=== PATIENT | male | born 1970 | race Caucasian/White ===

== ENCOUNTER 2022-03-17 02:54 | Observation (INO) ==
[2022-03-17] MEDS ORDERED: ONDANSETRON INJ 2 MG/ML 2 ML VIAL IV STA ×2 (03:28→05:24)
[2022-03-17] MEDS ORDERED: MoRPHine SULFATE 4 MG/ML 1 ML CARP\\VIAL IV STA ×3 (03:28→07:39)
[2022-03-17] MEDS ORDERED: SODIUM CHLORIDE 0.9% 1000ML 1,000 ML IV ONE ×2 (03:28→05:24)
[2022-03-17] MEDS ORDERED: ACETAMINOPHEN 1,000 MG/100 ML VIAL IV STA (03:28)
--- NOTE | 2022-03-17 03:41 | Emergency Department Note ---
History of Present Illness General Chief complaint: Kidney Stone Stated complaint: PAIN IN BACK AND GROIN,SWEATING Time Seen by Provider: 03/17/22 03:14 Source: patient Mode of arrival: ambulatory Limitations: no limitations History of Present Illness Provider complaint: back pain, abdominal pain, trouble urinating Onset (ago): day(s) 4 Maximum Pain Intensity: 9 This is a 51-year-old male presents emergency department complaining of back pain, abdominal pain, difficulty urinating. 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 Patient states pain seemed to improve on its own and then tonight became worse again with pain not only in the right lower back radiating into the right lower abdomen. Patient states pain was so bad he began having nausea and vomiting. Patient denies any recent trauma. No fevers or chills, or recent sick contacts. Patient states he has had difficulty urinating and feels he is urinating more frequently. He states the urine does look slightly dark. No pain with urination. Pt seen during a time of high acuity and national emergency pandemic while wearing PPE. Home Medications Medication Instructions Recorded Confirmed Type bictegravir 50 mg-emtricitabine 1 tab PO HS 03/17/22 03/17/22 History 200 mg-tenofovir alafenam 25 mg tablet (Biktarvy) cholecalciferol (vitamin D3) 50 2,000 unit PO HS 03/17/22 03/17/22 History mcg (2,000 unit) capsule (Vitamin D3) montelukast 10 mg tablet 10 mg PO HS 03/17/22 03/17/22 History sildenafil 50 mg tablet 50 mg PO DAILY PRN 03/17/22 03/17/22 History valacyclovir 500 mg tablet 500 mg PO UD 03/17/22 03/17/22 History Allergies Allergy/AdvReac Type Severity Reaction Status Date / Time No Known Allergies Allergy Unverified 03/17/22 07:24 Past Med/Surg History Medical History History of HIV infection History of kidney stones Surgical History History of cataract extraction History of rhinoplasty Family History Mother Hx of liver transplant Grandmother Cancer bone cancer Social History Smoking Status: Current every day smoker Tobacco Type: Cigars Years Smoked: 20; Cigarettes Per Day: 6; Second Hand Exposure: No; Do You Dip or Chew Tobacco: No; Tobacco Cessation Education Requested by Patient: No Hx Alcohol Use: No Hx Substance Use: No Preferred Language: Yakut Communication Ability: Effective 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 Beliefs That Will Affect Care: None marital status: Single Current Living Situation: Family Current Living Situation Comment: lives with sister current occupational status: employed current occupation: [employer] Other Information That Helps Us Care for You: No Feels Safe at Home: Yes Safety Concerns: Feels Safe At This Time Assistive Devices: Glasses Review of Systems A total of 10 systems reviewed and were otherwise negative All systems reviewed & are unremarkable except as noted in HPI & below Physical Exam Vital Signs Vital Signs - 24 hr 03/17/22 03:00 03/17/22 03:43 03/17/22 03:48 Temperature 36.4 C L Temperature Source Oral Pulse Rate 52 L 70 Pulse Rate [Finger] 62 Pulse Rate from SpO2 Sensor 71 Respiratory Rate 28 H 18 30 H Respiratory Effort / Characteristics Non-Labored Spontaneous Non-Labored Spontaneous Respiratory Depth Shallow Normal Respiratory Pattern Regular Blood Pressure 160/96 H Blood Pressure [Left Arm] 167/88 H Blood Pressure Mean 117 Blood Pressure Mean [Left Arm] 114 Blood Pressure Position [Left Arm] Pulse Oximetry 100 99 93 Oxygen Delivery Method Room Air Room Air Sepsis Recent Fever Within 48 Hours No Sepsis New/Unexplained Change in Mental Status No Sepsis Action Taken by Nursing No Action Required 03/17/22 03:50 03/17/22 04:03 03/17/22 04:04 Temperature Temperature Source Pulse Rate 77 67 63 Pulse Rate [Finger] Pulse Rate from SpO2 Sensor 81 59 L Respiratory Rate 23 15 23 Respiratory Effort / Characteristics Respiratory Depth Respiratory Pattern Blood Pressure 139/74 Blood Pressure [Left Arm] Blood Pressure Mean 95 Blood Pressure Mean [Left Arm] Blood Pressure Position [Left Arm] Pulse Oximetry 92 98 Oxygen Delivery Method Sepsis Recent Fever Within 48 Hours Sepsis New/Unexplained Change in Mental Status Sepsis Action Taken by Nursing 03/17/22 04:10 03/17/22 04:20 03/17/22 04:30 Temperature Temperature Source Pulse Rate 60 57 L 54 L Pulse Rate [Finger] Pulse Rate from SpO2 Sensor 59 L 57 L 55 L Respiratory Rate 19 20 14 Respiratory Effort / Characteristics Respiratory Depth Respiratory Pattern Blood Pressure 152/78 H Blood Pressure [Left Arm] Blood Pressure Mean 102 Blood Pressure Mean [Left Arm] Blood Pressure Position [Left Arm] Pulse Oximetry 93 94 95 Oxygen Delivery Method Sepsis Recent Fever Within 48 Hours Sepsis New/Unexplained Change in Mental Status Sepsis Action Taken by Nursing 03/17/22 04:40 03/17/22 04:50 03/17/22 05:00 Temperature Temperature Source Pulse Rate 52 L 54 L 48 L Pulse Rate [Finger] Pulse Rate from SpO2 Sensor 52 L 55 L 49 L Respiratory Rate 18 17 16 Respiratory Effort / Characteristics Respiratory Depth Respiratory Pattern Blood Pressure 155/80 H Blood Pressure [Left Arm] Blood Pressure Mean 105 Blood Pressure Mean [Left Arm] Blood Pressure Position [Left Arm] Pulse Oximetry 95 94 95 Oxygen Delivery Method Sepsis Recent Fever Within 48 Hours Sepsis New/Unexplained Change in Mental Status Sepsis Action Taken by Nursing 03/17/22 05:10 03/17/22 05:20 03/17/22 05:30 Temperature Temperature Source Pulse Rate 46 L 50 L 48 L Pulse Rate [Finger] Pulse Rate from SpO2 Sensor 47 L 50 L Respiratory Rate 18 17 22 Respiratory Effort / Characteristics Respiratory Depth Respiratory Pattern Blood Pressure 168/93 H Blood Pressure [Left Arm] Blood Pressure Mean 118 Blood Pressure Mean [Left Arm] Blood Pressure Position [Left Arm] Pulse Oximetry 96 96 Oxygen Delivery Method Sepsis Recent Fever Within 48 Hours Sepsis New/Unexplained Change in Mental Status Sepsis Action Taken by Nursing 03/17/22 05:40 03/17/22 05:50 03/17/22 05:59 Temperature Temperature Source Pulse Rate 58 L 65 Pulse Rate [Finger] 76 Pulse Rate from SpO2 Sensor 66 Respiratory Rate 17 18 20 Respiratory Effort / Characteristics Respiratory Depth Respiratory Pattern Blood Pressure Blood Pressure [Left Arm] 168/93 H Blood Pressure Mean Blood Pressure Mean [Left Arm] 118 Blood Pressure Position [Left Arm] Left Lateral Pulse Oximetry 90 98 Oxygen Delivery Method Room Air Sepsis Recent Fever Within 48 Hours Sepsis New/Unexplained Change in Mental Status Sepsis Action Taken by Nursing 03/17/22 06:00 03/17/22 06:10 03/17/22 06:20 Temperature Temperature Source Pulse Rate 49 L 58 L 58 L Pulse Rate [Finger] Pulse Rate from SpO2 Sensor 50 L 58 L 56 L Respiratory Rate 15 18 18 Respiratory Effort / Characteristics Respiratory Depth Respiratory Pattern Blood Pressure 161/95 H Blood Pressure [Left Arm] Blood Pressure Mean 117 Blood Pressure Mean [Left Arm] Blood Pressure Position [Left Arm] Pulse Oximetry 97 90 91 Oxygen Delivery Method Sepsis Recent Fever Within 48 Hours Sepsis New/Unexplained Change in Mental Status Sepsis Action Taken by Nursing 03/17/22 06:30 03/17/22 06:39 03/17/22 06:40 Temperature Temperature Source Pulse Rate 52 L 51 L Pulse Rate [Finger] 56 L Pulse Rate from SpO2 Sensor 52 L 51 L Respiratory Rate 16 16 9 L Respiratory Effort / Characteristics Respiratory Depth Respiratory Pattern Blood Pressure 150/84 H Blood Pressure [Left Arm] 150/84 H Blood Pressure Mean 106 Blood Pressure Mean [Left Arm] 106 Blood Pressure Position [Left Arm] Pulse Oximetry 92 96 92 Oxygen Delivery Method Room Air Sepsis Recent Fever Within 48 Hours Sepsis New/Unexplained Change in Mental Status Sepsis Action Taken by Nursing 03/17/22 06:50 03/17/22 07:00 03/17/22 07:10 Temperature Temperature Source Pulse Rate 55 L 59 L 49 L Pulse Rate [Finger] Pulse Rate from SpO2 Sensor 55 L 59 L 51 L Respiratory Rate 17 15 17 Respiratory Effort / Characteristics Respiratory Depth Respiratory Pattern Blood Pressure 147/89 H Blood Pressure [Left Arm] Blood Pressure Mean 108 Blood Pressure Mean [Left Arm] Blood Pressure Position [Left Arm] Pulse Oximetry 92 95 93 Oxygen Delivery Method Sepsis Recent Fever Within 48 Hours Sepsis New/Unexplained Change in Mental Status Sepsis Action Taken by Nursing 03/17/22 07:20 Temperature Temperature Source Pulse Rate 51 L Pulse Rate [Finger] Pulse Rate from SpO2 Sensor 51 L Respiratory Rate 19 Respiratory Effort / Characteristics Respiratory Depth Respiratory Pattern Blood Pressure Blood Pressure [Left Arm] Blood Pressure Mean Blood Pressure Mean [Left Arm] Blood Pressure Position [Left Arm] Pulse Oximetry 92 Oxygen Delivery Method Sepsis Recent Fever Within 48 Hours Sepsis New/Unexplained Change in Mental Status Sepsis Action Taken by Nursing GENERAL: alert, ill appearing, well nourished, no distress, non-toxic, diaphoretic, began vomiting during exam EYE EXAM: normal conjunctiva, PERRL and EOM's grossly intact OROPHARYNX: no exudate, no erythema, lips, buccal mucosa, and tongue normal and mucous membranes are moist NECK: supple, no nuchal rigidity, no adenopathy, non-tender LUNGS: Clear to auscultation. Normal chest wall mechanics, no w/r/r HEART: no murmurs, S1 normal and S2 normal ABDOMEN: abdomen soft, non-tender, normo-active bowel sounds, no masses, no rebound or guarding. BACK: Back is symmetrical on inspection and there is no deformity, no midline tenderness, no CVA tenderness. SKIN: no rashes and no bruising, pale UPPER EXTREMITIES: upper extremities are grossly normal. FROM, nml pulses b/l. LOWER EXTREMITIES: No pitting edema. FROM, nml pulses b/l. NEURO EXAM: Normal sensorium, cranial nerves II-XII grossly intact, normal speech, no gross weakness of arms, no gross weakness of legs. Gross sensation intact. Course Course 0552: Pt updated on results. 0735: Updated pt. Still having pain and nausea. 0755: Discussed with Dr. Solis. Administered Medications Sodium Chloride (Nss 1000ml) 1,000 mls @ 125 mls/hr IV .Q8H ADAM Stop: 04/16/22 07:44 Last Admin: 03/18/22 08:44 Dose: 125 mls/hr Documented by: [id number] Infusion: 03/18/22 08:23 Dose: 125 mls/hr Documented by: [id number] Admin: 03/18/22 00:23 Dose: 125 mls/hr Documented by: [id number] Infusion: 03/18/22 00:23 Dose: 125 mls/hr Documented by: [id number] Admin: 03/17/22 17:56 Dose: 125 mls/hr Documented by: [id number] Infusion: 03/17/22 15:47 Dose: 125 mls/hr Documented by: [id number] Admin: 03/17/22 07:47 Dose: 125 mls/hr Documented by: [id number] Ceftriaxone Sodium 2,000 mg/ (Dextrose) 70 mls @ 140 mls/hr IV Q24H ADAM; Protocol Stop: 03/27/22 11:44 Last Infusion: 03/17/22 12:54 Dose: 0 mls/hr Documented by: [id number] Admin: 03/17/22 12:24 Dose: 140 mls/hr Documented by: [id number] Magnesium Sulfate/Dextrose (Magnesium Sulfate / D5w) 1 gm in 100 mls @ 50 mls/hr IV ONE ONE Stop: 03/18/22 10:29 Last Admin: 03/18/22 08:46 Dose: 50 mls/hr Documented by: [id number] Miscellaneous (Biktarvy-Order Awaiting Action) 1 ea N/A QS [facility], 1928–1983 Stop: 04/16/22 11:29 Last Admin: 03/18/22 07:19 Dose: Not Given Documented by: [id number] Admin: 03/18/22 00:23 Dose: Not Given Documented by: [id number] Admin: 03/17/22 16:11 Dose: Not Given Documented by: [id number] Admin: 03/17/22 12:27 Dose: Not Given Documented by: [id number] Montelukast Sodium (Montelukast Sodium 10 Mg Tablet) 10 mg PO [facility] Stop: 04/16/22 20:59 Last Admin: 03/17/22 19:56 Dose: 10 mg Documented by: [id number] Morphine Sulfate (Morphine Sulfate 2 Mg/Ml Carp) 2 mg IV Q3H PRN PRN Reason: Pain Stop: 03/31/22 11:17 Last Admin: 03/18/22 06:24 Dose: 2 mg Documented by: [id number] Admin: 03/18/22 03:23 Dose: 2 mg Documented by: [id number] Admin: 03/18/22 00:23 Dose: 2 mg Documented by: [id number] Admin: 03/17/22 17:54 Dose: 2 mg Documented by: [id number] Ondansetron HCl (Ondansetron Inj 2 Mg/Ml 2 Ml Vial) 4 mg IV Q6H PRN PRN Reason: Nausea Stop: 04/16/22 11:17 Last Admin: 03/18/22 05:37 Dose: 4 mg Documented by: [id number] Oxycodone/Acetaminophen (Oxycodone/Acetaminophen 5mg/325mg Tab) 1 tab PO Q4H PRN PRN Reason: Pain Stop: 03/31/22 11:17 Last Admin: 03/17/22 19:55 Dose: 1 tab Documented by: [id number] Vitamin D (Cholecalciferol 1,000 Units 25 Mcg Tab) 2,000 units PO [facility] Stop: 04/16/22 20:59 Last Admin: 03/17/22 19:56 Dose: 2,000 units Documented by: [id number] Discontinued Medications Sodium Chloride (Nss 1000ml) 1,000 mls @ 999 mls/hr IV .Q1H1M ONE Stop: 03/17/22 04:28 Last Infusion: 03/17/22 04:38 Dose: 0 mls/hr Documented by: [id number] Admin: 03/17/22 03:34 Dose: 999 mls/hr Documented by: [id number] Acetaminophen (Ofirmev) 1,000 mg in 100 mls @ 400 mls/hr IV NOW STA Stop: 03/17/22 03:42 Last Infusion: 03/17/22 03:50 Dose: 0 mls/hr Documented by: [id number] Admin: 03/17/22 03:35 Dose: 400 mls/hr Documented by: [id number] Sodium Chloride (Nss 1000ml) 1,000 mls @ 999 mls/hr IV .Q1H1M ONE Stop: 03/17/22 06:24 Last Infusion: 03/17/22 06:40 Dose: 0 mls/hr Documented by: [id number] Admin: 03/17/22 05:38 Dose: 999 mls/hr Documented by: [id number] Prochlorperazine (Compazine) 1 mls @ 1 mls/min IV ONE ONE Stop: 03/17/22 07:40 Last Admin: 03/17/22 07:47 Dose: 1 mls/min Documented by: [id number] Ketorolac Tromethamine (Ketorolac Tromethamine 15 Mg/Ml Vial) 10 mg IV NOW ONE Stop: 03/17/22 07:32 Last Admin: 03/17/22 07:36 Dose: 10 mg Documented by: [id number] Morphine Sulfate (Morphine Sulfate 4 Mg/Ml 1 Ml Carp\Vial) 4 mg IV NOW STA Stop: 03/17/22 03:29 Last Admin: 03/17/22 03:35 Dose: 4 mg Documented by: [id number] Morphine Sulfate (Morphine Sulfate 4 Mg/Ml 1 Ml Carp\Vial) 4 mg IV NOW STA Stop: 03/17/22 05:25 Last Admin: 03/17/22 05:37 Dose: 4 mg Documented by: [id number] Morphine Sulfate (Morphine Sulfate 4 Mg/Ml 1 Ml Carp\Vial) 4 mg IV NOW STA Stop: 03/17/22 07:40 Last Admin: 03/17/22 07:47 Dose: 4 mg Documented by: [id number] Morphine Sulfate (Morphine Sulfate 2 Mg/Ml Carp) 1 mg IV NOW STA Stop: 03/18/22 08:39 Last Admin: 03/18/22 08:43 Dose: 1 mg Documented by: [id number] Ondansetron HCl (Ondansetron Inj 2 Mg/Ml 2 Ml Vial) 4 mg IV NOW STA Stop: 03/17/22 03:29 Last Admin: 03/17/22 03:34 Dose: 4 mg Documented by: [id number] Ondansetron HCl (Ondansetron Inj 2 Mg/Ml 2 Ml Vial) 4 mg IV NOW STA Stop: 03/17/22 05:25 Last Admin: 03/17/22 05:37 Dose: 4 mg Documented by: [id number] Oxycodone/Acetaminophen (Oxycodone/Acetaminophen 5mg/325mg Tab) 1 tab PO NOW STA Stop: 03/17/22 06:43 Last Admin: 03/17/22 06:58 Dose: 1 tab Documented by: [id number] Tamsulosin HCl (Tamsulosin Hcl 0.4 Mg Cap) 0.4 mg PO NOW ONE Stop: 03/17/22 05:26 Last Admin: 03/17/22 05:38 Dose: 0.4 mg Documented by: [id number] Medical Decision Making Differential Diagnosis Differential diagnosis: Etiologies such as shingles, pyelonephritis/UTI, renal colic, appendicitis, diverticulitis, mesenteric ischemia, torsion, aortic pathology, infections, inflammatory bowel disease, bowel obstruction, PUD, biliary pathology, as well as others were entertained. Medical Records Attestation: I reviewed the patient's medical records. Home Medications Current Medication List: was personally reviewed by me Laboratory Data Attestation: I reviewed the patient's lab results. Result diagrams: 03/18/22 05:51 03/18/22 05:51 Lab Results 03/17/22 03/17/22 03/17/22 Range/Units 03:15 03:15 03:15 WBC 18.96 H (4.8-10.8) K/uL RBC 5.04 (4.7-6.1) M/uL Hgb 17.9 (14.0-18.0) g/dL Hct 51.2 (42-52) % MCV 101.6 H (80-100) fL MCH 35.5 H (25-34) pg MCHC 35.0 (32-36) g/dL RDW Std Deviation 47.7 H (36.4-46.3) fL RDW Coeff of Alexander 12.7 (11.5-14.5) % Plt Count 276 (130-400) K/uL MPV 10.1 (7.4-10.4) fL Immature Gran % (Auto) 0.3 % Neut % (Auto) 70.9 % Lymph % (Auto) 19.6 % [place] % (Auto) 7.8 % Eos % (Auto) 1.2 % Baso % (Auto) 0.2 % Neut # (Auto) 13.46 H (1.4-6.5) K/uL Lymph # (Auto) 3.71 H (1.2-3.4) K/uL [place] # (Auto) 1.47 H (0.11-0.59) K/uL Eos # (Auto) 0.23 (0-0.5) K/uL Baso # (Auto) 0.04 (0-0.2) K/uL Immature Gran # (Auto) 0.05 H (0.00-0.02) K/uL Sodium 142 (136-145) mmol/L Potassium 3.6 (3.5-5.1) mmol/L Chloride 107 (98-107) mmol/L Carbon Dioxide 26 (21-32) mmol/L Anion Gap 9 (3-11) BUN 18 (6-23) mg/dl Creatinine 1.62 H (0.6-1.4) mg/dl Est Cr Clr Drug Dosing 54.4 ml/min Est GFR ( Amer) 55.3 ml/min Est GFR (Non-Af Amer) 47.7 ml/min BUN/Creatinine Ratio 11.1 (10-20) Glucose 136 H (70-99(Fasting)) mg/dl Calcium 9.4 (8.5-10.1) mg/dl Total Bilirubin 0.7 (0.2-1.0) mg/dl AST 20 (13-39) U/L ALT 23 (7-52) U/L Alkaline Phosphatase 92 (34-104) U/L Total Protein 7.0 (6.0-8.3) gm/dl Albumin 4.2 (3.4-5.0) gm/dl Globulin 2.8 (2.5-4.0) gm/dl Albumin/Globulin Ratio 1.5 (0.9-2) Urine Color Yellow Urine Appearance Clear (Clear) Urine pH 5.0 (4.5-7.5) Ur Specific [place] 1.023 (1.000-1.030) Urine Protein Trace H (Negative) Urine Glucose (UA) Negative (Negative) Urine Ketones 1+ H (Negative) Urine Blood 3+ H (Negative) Urine Nitrite Negative (Negative) Urine Bilirubin Negative (Negative) Urine Urobilinogen Negative (Negative) Ur Leukocyte Esterase Negative (Negative) Urine WBC (Auto) 1-5 (0-5) /hpf Urine RBC (Auto) >30 H (0-4) /hpf U Hyaline Cast (Auto) 1-5 (0-5) /lpf U Epithel Cells (Auto) 5-10 H (0-5) /lpf Urine Bacteria (Auto) Negative (Negative) 03/17/22 03/17/22 Range/Units 06:40 06:40 WBC 19.51 H (4.8-10.8) K/uL RBC 4.73 (4.7-6.1) M/uL Hgb 16.6 (14.0-18.0) g/dL Hct 47.9 (42-52) % MCV 101.3 H (80-100) fL MCH 35.1 H (25-34) pg MCHC 34.7 (32-36) g/dL RDW Std Deviation 47.4 H (36.4-46.3) fL RDW Coeff of Alexander 12.7 (11.5-14.5) % Plt Count 206 (130-400) K/uL MPV 10.0 (7.4-10.4) fL Immature Gran % (Auto) % Neut % (Auto) % Lymph % (Auto) % [place] % (Auto) % Eos % (Auto) % Baso % (Auto) % Neut # (Auto) (1.4-6.5) K/uL Lymph # (Auto) (1.2-3.4) K/uL [place] # (Auto) (0.11-0.59) K/uL Eos # (Auto) (0-0.5) K/uL Baso # (Auto) (0-0.2) K/uL Immature Gran # (Auto) (0.00-0.02) K/uL Sodium 141 (136-145) mmol/L Potassium 4.4 D (3.5-5.1) mmol/L Chloride 111 H (98-107) mmol/L Carbon Dioxide 27 (21-32) mmol/L Anion Gap 3 (3-11) BUN 16 (6-23) mg/dl Creatinine 1.50 H (0.6-1.4) mg/dl Est Cr Clr Drug Dosing 58.8 ml/min Est GFR ( Amer) 60.7 ml/min Est GFR (Non-Af Amer) 52.4 ml/min BUN/Creatinine Ratio 10.7 (10-20) Glucose 114 H (70-99(Fasting)) mg/dl Calcium 8.1 L (8.5-10.1) mg/dl Total Bilirubin (0.2-1.0) mg/dl AST (13-39) U/L ALT (7-52) U/L Alkaline Phosphatase (34-104) U/L Total Protein (6.0-8.3) gm/dl Albumin (3.4-5.0) gm/dl Globulin (2.5-4.0) gm/dl Albumin/Globulin Ratio (0.9-2) Urine Color Urine Appearance (Clear) Urine pH (4.5-7.5) Ur Specific [place] (1.000-1.030) Urine Protein (Negative) Urine Glucose (UA) (Negative) Urine Ketones (Negative) Urine Blood (Negative) Urine Nitrite (Negative) Urine Bilirubin (Negative) Urine Urobilinogen (Negative) Ur Leukocyte Esterase (Negative) Urine WBC (Auto) (0-5) /hpf Urine RBC (Auto) (0-4) /hpf U Hyaline Cast (Auto) (0-5) /lpf U Epithel Cells (Auto) (0-5) /lpf Urine Bacteria (Auto) (Negative) Imaging Data Radiologist's Impression: Abdomen/Pelvis CT 03/17/22 03:[address] WITHOUT CONTRAST CT DOSE: 864.34 mGycm HISTORY: Acute low back pain with history of kidney stones Right back/abd pain, hx stones TECHNIQUE: Multiaxial CT images of the abdomen and pelvis were performed without contrast. A dose lowering technique was utilized adhering to the principles of ALARA. COMPARISON STUDY: None. FINDINGS: Mild bibasilar atelectasis. There is no pneumatosis or pneumoperitoneum. The unenhanced spleen, pancreas, adrenal glands, gallbladder and liver appear unremarkable. Unremarkable left kidney. There is mild to moderate right-sided hydroureteronephrosis with perinephric and periureteral inflammation secondary to an obstructing calculus of the distal right ureter which is located approximately 1 cm proximal to the ureterovesicular junction. Atherosclerosis of the aorta without aneurysm. There is no lymphadenopathy. No bowel obstruction or bowel wall thickening. Mild fecal retention. Normal appendix. Unremarkable soft tissues. Degenerative changes of the spine. IMPRESSION: 1. Mild to moderate right-sided hydroureteronephrosis secondary to an obstructing 4 mm calculus of the distal right ureter just proximal to the ureterovesicular junction. 2. No bowel obstruction or bowel wall thickening. Normal appendix. ACT 112: Negative or not required by law. The above report was generated using voice recognition software. It may contain grammatical, syntax or spelling errors. Electronically signed by: Long Martins M.D. 03/17/2022 7:[address] abdomen and pelvis without contrast: Impression: 3 mm distal right ureteral stone with mild proximal hydroureteronephrosis and perinephric stranding. Left kidney unremarkable. No free fluid. Bowel is normal in caliber. No evidence of acute appendicitis. Solid organs are otherwise unremarkable and a nonfused exam. Radiologist: Saqib Robles MD ECG Data Attestation: I personally reviewed and interpreted this ECG as follows: Indication: + vomiting Rate (beats per minute): 59 Rhythm: + sinus bradycardia ECG Intervals/blocks: + Normal QRS and + Normal QT ECG [place]: + Normal ECG ST segments: + Normal ST segments MDM Narrative This is a 51-year-old male who presents due to concern for right back pain, right abdominal pain, and recurrent kidney stone. Labs are drawn and sent and did reveal significant leukocytosis and MIKAYLA. Patient was found to have a distal right ureterolithiasis. Patient given 2 L of IV fluids and several doses of pain and nausea medication. Repeat labs drawn as a precaution without improv ement of the leukocytosis and minimal improvement of MIKAYLA. Due to persistent symptoms, case discussed with hospitalist for additional inpatient evaluation and management. No evidence of accompanying UTI. I do not suspect pyelonephritis. Patient was made aware of all results, verbalized understand ing, and was in agreement with plan due to persistent symptoms. An order was placed for continuous cardiac monitoring. The monitor shows a rate of _88_ with _normal sinus_ rhythm. Impression & Plan Back pain, Right ureteral calculus, Renal colic, MIKAYLA (acute kidney injury) Discharge Plan Visit Data Chief Complaint: Kidney Stone Stated Complaint: PAIN IN BACK AND GROIN,SWEATING ED Provider: Gisselle Faustin Discharge Problem: Back pain, Right ureteral calculus, Renal colic, MIKAYLA (acute kidney injury) Patient Disposition: Admitted As Inpatient Discharge Instructions Interventions: ED Discharge Assessment Last Done: 03/17/22 09:58 Discharge Problem: Back pain Qualifiers: Back pain location: low back pain Chronicity: acute Back pain laterality: right Sciatica presence: without sciatica Qualified Code(s): M54.50 - Low back pain, unspecified
[2022-03-17 03:47] LABS: Basophils # (auto) 0.04 K/uL (0-0.2); Basophils % (auto) 0.2 %; Eosinophils # (auto) 0.23 K/uL (0-0.5); Eosinophils % (auto) 1.2 %; Hematocrit (blood only) 51.2 % (42-52); Hemoglobin 17.9 g/dL (14.0-18.0); Immature Granulocytes # (auto) 0.05 K/uL (0.00-0.02); Immature Granulocytes % (auto) 0.3 %; Lymphocytes # (auto) 3.71 K/uL (1.2-3.4); Lymphocytes % (auto) 19.6 %; Mean Corpuscular Hemoglobin 35.5 pg (25-34); Mean Corpuscular Volume 101.6 fL (80-100); Mean Platelet Volume 10.1 fL (7.4-10.4); Monocytes # (auto) 1.47 K/uL (0.11-0.59); Monocytes % (auto) 7.8 %; Neutrophils # (auto) 13.46 K/uL (1.4-6.5); Neutrophils % (auto) 70.9 %; Platelet Count 276 K/uL (130-400); RDW Coefficient of Variation 12.7 % (11.5-14.5); RDW Standard Deviation 47.7 fL (36.4-46.3); Red Blood Count 5.04 M/uL (4.7-6.1); White Blood Count 18.96 K/uL (4.8-10.8)
[2022-03-17 03:53] LABS: Appearance Urine Clear (Clear); Bacteria Urine Automated Negative (Negative); Bilirubin Urine Negative (Negative); Blood Urine 3+ (Negative); Color Urine Yellow; Glucose Urine UA Negative (Negative); Ketones Urine 1+ (Negative); Leukocyte Esterase Urine Negative (Negative); Nitrite Urine Negative (Negative); Protein Urine Trace (Negative); RBC Urine Automated >30 /hpf (0-4); Specific Gravity Urine 1.023 (1.000-1.030); Urobilinogen Urine Negative (Negative)
[2022-03-17 04:01] LABS: Albumin Globulin Ratio 1.5 (0.9-2); Albumin Level 4.2 gm/dl (3.4-5.0); BUN Creatinine Ratio 11.1 (10-20); Bilirubin,Total 0.7 mg/dl (0.2-1.0); Calcium 9.4 mg/dl (8.5-10.1); Creatinine Clr Calc Pharmacy 54.4 ml/min; Est GFR (African American) 55.3 ml/min; Est GFR (Non-African American) 47.7 ml/min; Globulin 2.8 gm/dl (2.5-4.0); Potassium 3.6 mmol/L (3.5-5.1)
[2022-03-17] MEDS ORDERED: TAMSULOSIN HCL 0.4 MG CAP PO ONE (05:25)
[2022-03-17] MEDS ORDERED: oxyCODONE/ACETAMINOPHEN 5mg/325mg TAB PO STA (06:42)
[2022-03-17 06:52] LABS: Hematocrit (blood only) 47.9 % (42-52); Hemoglobin 16.6 g/dL (14.0-18.0); Mean Corpuscular Hemoglobin 35.1 pg (25-34); Mean Corpuscular Hgb Conc 34.7 g/dL (32-36); Mean Corpuscular Volume 101.3 fL (80-100); Platelet Count 206 K/uL (130-400); RDW Coefficient of Variation 12.7 % (11.5-14.5); RDW Standard Deviation 47.4 fL (36.4-46.3); Red Blood Count 4.73 M/uL (4.7-6.1); White Blood Count 19.51 K/uL (4.8-10.8)
[2022-03-17 07:18] LABS: BUN Creatinine Ratio 10.7 (10-20); Calcium 8.1 mg/dl (8.5-10.1); Creatinine Clr Calc Pharmacy 58.8 ml/min; Est GFR (African American) 60.7 ml/min; Est GFR (Non-African American) 52.4 ml/min; Potassium 4.4 mmol/L (3.5-5.1)
[2022-03-17] MEDS ORDERED: KETOROLAC TROMETHAMINE 15 MG/ML VIAL IV ONE (07:31)
[2022-03-17] MEDS ORDERED: PROCHLORPERAZINE 1 ML IV ONE (07:39)
[2022-03-17] MEDS: SODIUM CHLORIDE 0.9% 1000ML 1,000 ML IV SCH ×2 (07:47→17:56)
--- NOTE | 2022-03-17 07:53 | CT Scan Report ---
ABDOMEN AND PELVIS CT WITHOUT CONTRAST CT DOSE: 864.34 mGycm HISTORY: Acute low back pain with history of kidney stones Right back/abd pain, hx stones TECHNIQUE: Multiaxial CT images of the abdomen and pelvis were performed without contrast. A dose lo wering technique was utilized adhering to the principles of ALARA. COMPARISON STUDY: None. FINDINGS: Mild bibasilar atelectasis. There is no pneumatosis or pneumoperitoneum. The unenhanced spl een, pancreas, adrenal glands, gallbladder and liver appear unremarkable. Unremarkable left kidney. T here is mild to moderate right-sided hydroureteronephrosis with perinephric and periureteral inflamma tion secondary to an obstructing calculus of the distal right ureter which is located approximately 1 cm proximal to the ureterovesicular junction. Atherosclerosis of the aorta without aneurysm. There i s no lymphadenopathy. No bowel obstruction or bowel wall thickening. Mild fecal retention. Normal appendix. Unremarkable so ft tissues. Degenerative changes of the spine. IMPRESSION: 1. Mild to moderate right-sided hydroureteronephrosis secondary to an obstructing 4 mm calculus of th e distal right ureter just proximal to the ureterovesicular junction. 2. No bowel obstruction or bowel wall thickening. Normal appendix. ACT 112: Negative or not required by law. The above report was generated using voice recognition software. It may contain grammatical, syntax o r spelling errors. Electronically signed by: Long Martins M.D. 03/17/2022 7:51 AM
--- NOTE | 2022-03-17 09:16 | History & Physical Report ---
Date of Service March 17, 2022 Assessment & Plan (1) Right ureteral calculus: (2) Hydronephrosis concurrent with and due to calculi of kidney and ureter: (3) Renal colic: (4) MIKAYLA (acute kidney injury): Plan: This is a 51-year-old male who has a significant past medical history of HIV who presents to ED secondary to flank pain x4 days. Mild to moderate right-sided hydroureteronephrosis secondary to an obstructing 4 mm calculus of the distal right ureter just proximal to the ureterovesicular junction. Right ureteral calculus Hydronephrosis concurrent and due to calculi of kidney and ureter MIKAYLA Renal colic Leukocytosis admit to [facility] tele consult urology Dr. Travis remain NPO until seen by urology strain all urine IVF, antiemetics flomax, pyridium prn given leukocytosis, may be reactive, empirically tx with IV rocephin, urine culture ordered Hx of HIV in remission for ~ 25 yrs on biktarvy Tobacco abuse smokes 2-10 cigars daily encourage smoking cessation DVT ppx: SCD/TEDS, ambulate Dispo: med tele FULL CODE PCP: Elvis Alfonso PA Pt was seen and examined in collaboration with Dr. Solis, please see addendum History of Present Illness Chief Complaint: Flank pain x4 days. Primary Care Provider: Rema Delacruz, This is a 51-year-old male who has a significant past medical history of HIV who presents to ED secondary to flank pain x4 days. He initially noted low back pain approximately 4 days ago. It was also associated with nausea. Pain radiated to right inguinal region. He also complained of suprapubic discomfort. 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 Symptoms progressed over 4 days and last evening he developed sharp, shooting pain and low back around the front and to right groin. He also was nauseated and had emesis and diaphoresis. He does have history of kidney stone in the past that had passed spontaneously. He opted to present to ED for further evaluation. He denies any fever, chills, sweats, lightheadedness, dizziness, chest pain, shortness of breath, cough, hematemesis, dysuria, increased urgency or frequency with urination, hematuria, melena or hematochezia. His appetite has otherwise been diminished. In ED patient remained hemodynamically stable. CT of abdomen pelvis did reveal a 4 mm distal right ureteral stone proximal to the UVJ. He received IV morphine in ED and pain has subsided significantly. Upon arrival he describes pain as 8 out of 10, worse with movement and improved with rest. Currently pain is minimal and a 1 out of 10. He was afebrile but did have a leukocytosis 19.51k. His creatinine was also elevated to 1.50. His creatinine baseline is unknown. Allergies Allergy/AdvReac Type Severity Reaction Status Date / Time No Known Allergies Allergy Unverified 03/17/22 07:24 Home Medications Medication Instructions Recorded Confirmed Type bictegravir 50 mg-emtricitabine 1 tab PO HS 03/17/22 03/17/22 History 200 mg-tenofovir alafenam 25 mg tablet (Biktarvy) cholecalciferol (vitamin D3) 50 2,000 unit PO HS 03/17/22 03/17/22 History mcg (2,000 unit) capsule (Vitamin D3) montelukast 10 mg tablet 10 mg PO HS 03/17/22 03/17/22 History sildenafil 50 mg tablet 50 mg PO DAILY PRN 03/17/22 03/17/22 History valacyclovir 500 mg tablet 500 mg PO UD 03/17/22 03/17/22 History Past Med/Surg History Medical History History of HIV infection History of kidney stones Surgical History History of cataract extraction History of rhinoplasty Family History Mother Hx of liver transplant Grandmother Cancer bone cancer Social History Smoking Status: Current every day smoker Tobacco Type: Cigars Years Smoked: 20; Cigarettes Per Day: 6; Second Hand Exposure: No; Do You Dip or Chew Tobacco: No; Tobacco Cessation Education Requested by Patient: No Hx Alcohol Use: No Hx Substance Use: No Preferred Language: Georgian Communication Ability: Effective 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: No Beliefs That Will Affect Care: None marital status: Single Current Living Situation: Family Current Living Situation Comment: lives with sister current occupational status: employed current occupation: [employer] Other Information That Helps Us Care for You: No Feels Safe at Home: Yes Safety Concerns: Feels Safe At This Time Assistive Devices: Glasses Review of Systems Review of Systems: All systems reviewed & are unremarkable except as noted in HPI & below Physical Exam Physical Exam: Constitutional: WD/WN, vitals as above, NAD, sitting up in bed, pleasant, conversing easily Head: Normocephalic, Atraumatic Eyes: PERRL, conjunctivae normal, anicteric sclerae ENMT: external ear and nose normal, oropharynx normal Neck: trachea midline, no thyromegaly normal visual inspection Respiratory: normal respiratory effort, lungs clear to auscultation, no wheeze, rales, rhonchi. Normal insp/exp effort, no accessory muscle use Cardiovascular: RRR, no murmur, no edema Vessels: no JVD or carotid bruit Chest: normal inspection of chest Abdomen: normal bowel sounds, soft, nontender, no hepatosplenomegaly Musculoskeletal: no cyanosis or clubbing, extremities motor strength 5/5 Skin: no rashes, warm and dry normal turgor Neurologic: PERRL, EOMI, accommodation nl, no face palsy, +stutter which is baseline for pt CN's II-XI intact bilaterally and moves all extremities Psychiatric: A+Ox3, euthymic affect Lymphatic: no cervical or axillary lymphadenopathy : deferred Results & Data Results & Data ([facility]) Vital Signs (Past 12 Hours) Vital Signs Temp Pulse Pulse Resp BP BP Pulse Ox 03/17/22 08:30 79 19 128/73 90 03/17/22 08:20 77 15 88 L 03/17/22 08:10 76 17 90 03/17/22 08:00 69 17 113/65 91 03/17/22 07:50 66 12 92 03/17/22 07:40 49 L 13 92 03/17/22 07:30 53 L 19 91 03/17/22 07:20 51 L 19 92 03/17/22 07:10 49 L 17 93 03/17/22 07:00 59 L 15 147/89 H 95 03/17/22 06:50 55 L 17 92 03/17/22 06:40 51 L 9 L 92 03/17/22 06:39 56 L 16 150/84 H 96 03/17/22 06:30 52 L 16 150/84 H 92 03/17/22 06:20 58 L 18 91 03/17/22 06:10 58 L 18 90 03/17/22 06:00 49 L 15 161/95 H 97 03/17/22 05:59 76 20 168/93 H 98 03/17/22 05:50 65 18 90 03/17/22 05:40 58 L 17 03/17/22 05:30 48 L 22 168/93 H 03/17/22 05:20 50 L 17 96 03/17/22 05:10 46 L 18 96 03/17/22 05:00 48 L 16 155/80 H 95 03/17/22 04:50 54 L 17 94 03/17/22 04:40 52 L 18 95 03/17/22 04:30 54 L 14 152/78 H 95 03/17/22 04:20 57 L 20 94 03/17/22 04:10 60 19 93 03/17/22 04:04 63 23 139/74 98 03/17/22 04:03 67 15 03/17/22 03:50 77 23 92 03/17/22 03:48 70 30 H 93 03/17/22 03:43 62 18 167/88 H 99 03/17/22 03:00 36.4 C L 52 L 28 H 160/96 H 100 Medications Administered Medication List Sodium Chloride (Nss 1000ml) 1,000 mls @ 125 mls/hr IV .Q8H ADAM Stop: 04/16/22 07:44 Last Admin: 03/17/22 07:47 Dose: 125 mls/hr Documented by: [id number] Discontinued Medications Sodium Chloride (Nss 1000ml) 1,000 mls @ 999 mls/hr IV .Q1H1M ONE Stop: 03/17/22 04:28 Last Infusion: 03/17/22 04:38 Dose: 0 mls/hr Documented by: [id number] Admin: 03/17/22 03:34 Dose: 999 mls/hr Documented by: [id number] Acetaminophen (Ofirmev) 1,000 mg in 100 mls @ 400 mls/hr IV NOW STA Stop: 03/17/22 03:42 Last Infusion: 03/17/22 03:50 Dose: 0 mls/hr Documented by: [id number] Admin: 03/17/22 03:35 Dose: 400 mls/hr Documented by: [id number] Sodium Chloride (Nss 1000ml) 1,000 mls @ 999 mls/hr IV .Q1H1M ONE Stop: 03/17/22 06:24 Last Infusion: 03/17/22 06:40 Dose: 0 mls/hr Documented by: [id number] Admin: 03/17/22 05:38 Dose: 999 mls/hr Documented by: [id number] Prochlorperazine (Compazine) 1 mls @ 1 mls/min IV ONE ONE Stop: 03/17/22 07:40 Last Admin: 03/17/22 07:47 Dose: 1 mls/min Documented by: [id number] Ketorolac Tromethamine (Ketorolac Tromethamine 15 Mg/Ml Vial) 10 mg IV NOW ONE Stop: 03/17/22 07:32 Last Admin: 03/17/22 07:36 Dose: 10 mg Documented by: [id number] Morphine Sulfate (Morphine Sulfate 4 Mg/Ml 1 Ml Carp\Vial) 4 mg IV NOW STA Stop: 03/17/22 03:29 Last Admin: 03/17/22 03:35 Dose: 4 mg Documented by: [id number] Morphine Sulfate (Morphine Sulfate 4 Mg/Ml 1 Ml Carp\Vial) 4 mg IV NOW STA Stop: 03/17/22 05:25 Last Admin: 03/17/22 05:37 Dose: 4 mg Documented by: [id number] Morphine Sulfate (Morphine Sulfate 4 Mg/Ml 1 Ml Carp\Vial) 4 mg IV NOW STA Stop: 03/17/22 07:40 Last Admin: 03/17/22 07:47 Dose: 4 mg Documented by: [id number] Ondansetron HCl (Ondansetron Inj 2 Mg/Ml 2 Ml Vial) 4 mg IV NOW STA Stop: 03/17/22 03:29 Last Admin: 03/17/22 03:34 Dose: 4 mg Documented by: [id number] Ondansetron HCl (Ondansetron Inj 2 Mg/Ml 2 Ml Vial) 4 mg IV NOW STA Stop: 03/17/22 05:25 Last Admin: 03/17/22 05:37 Dose: 4 mg Documented by: [id number] Oxycodone/Acetaminophen (Oxycodone/Acetaminophen 5mg/325mg Tab) 1 tab PO NOW STA Stop: 03/17/22 06:43 Last Admin: 03/17/22 06:58 Dose: 1 tab Documented by: [id number] Tamsulosin HCl (Tamsulosin Hcl 0.4 Mg Cap) 0.4 mg PO NOW ONE Stop: 03/17/22 05:26 Last Admin: 03/17/22 05:38 Dose: 0.4 mg Documented by: [id number] COVID-19 Results Results COVID-19 Adm Lab Results: RBC 4.73 M/uL (4.7-6.1) 03/17/22 WBC 19.51 K/uL (4.8-10.8) H 03/17/22 Hgb 16.6 g/dL (14.0-18.0) 03/17/22 Hct 47.9 % (42-52) 03/17/22 Plt Count 206 K/uL (130-400) 03/17/22 Neutrophils (%) (Auto) 70.9 % 03/17/22 Lymphocytes (%) (Auto) 19.6 % 03/17/22 Monocytes # (Auto) 1.47 K/uL (0.11-0.59) H 03/17/22 Eosinophils # (Auto) 0.23 K/uL (0-0.5) 03/17/22 Immature Granulocyte % (Auto) 0.3 % 03/17/22 Neutrophils # (Auto) 13.46 K/uL (1.4-6.5) H 03/17/22 Lymphocytes # (Auto) 3.71 K/uL (1.2-3.4) H 03/17/22 Monocytes # (Auto) 1.47 K/uL (0.11-0.59) H 03/17/22 Eosinophils # (Auto) 0.23 K/uL (0-0.5) 03/17/22 Basophils # (Auto) 0.04 K/uL (0-0.2) 03/17/22 Immature Granulocyte # (Auto) 0.05 K/uL (0.00-0.02) H 03/17/22 Na 141 mmol/L (136-145) 03/17/22 K 4.4 mmol/L (3.5-5.1) 03/17/22 Cl 111 mmol/L (98-107) H 03/17/22 CO2 27 mmol/L (21-32) 03/17/22 Anion Gap 3 (3-11) 03/17/22 BUN 16 mg/dl (6-23) 03/17/22 Creatinine 1.50 mg/dl (0.6-1.4) H 03/17/22 BUN/Creatinine Ratio 10.7 (10-20) 03/17/22 Glucose Level 114 mg/dl (70-99(Fasting)) H 03/17/22 Ca 8.1 mg/dl (8.5-10.1) L 03/17/22 Total Bilirubin 0.7 mg/dl (0.2-1.0) 03/17/22 AST/SGOT 20 U/L (13-39) 03/17/22 ALT/SGPT 23 U/L (7-52) 03/17/22 Alkaline Phosphatase 92 U/L (34-104) 03/17/22 Total Protein 7.0 gm/dl (6.0-8.3) 03/17/22 Albumin 4.2 gm/dl (3.4-5.0) 03/17/22 Globulin 2.8 gm/dl (2.5-4.0) 03/17/22 Albumin/Globulin Ratio 1.5 (0.9-2) 03/17/22 SARS-CoV-2, RNA, NAAT NEGATIVE (NEGATIVE) 03/17/22 Code Status & VTE Plan Code Status FULL CODE VTE Prophylaxis Plan VTE Prophylaxis will be ordered: Yes Supervising Physician Co-Signing Physician Notes Patient is a 51-year-old male with history of HIV and no other significant past medical history presents with history of right flank pain associated with nausea radiating to right groin area since 4 days duration. Patient denies any hematuria. He states having passed a kidney stone spontaneously in the past. Pain has been gradually worsening and so came to ED for further evaluation. Please review HPI for complete details of presentation. Blood work showed leukocytosis 18.9, creatinine 1.6, glucose 136 but otherwise normal limits. CT abdomen showed mild to moderate right-sided hydroureteronephrosis secondary to obstructing 4 mm calculus of the distal right ureter just proximal to the UV junction. On exam patient is moderately built and nourished, no apparent distress, normocephalic atraumatic, EOMI, normal breath sounds, clear to auscultation, S1-S2, no murmur, no pedal edema, abdomen soft, right flank tender, normal bowel sounds, alert, awake, oriented, grossly no focal deficits. Patient is admitted for management of right ureteral calculus, obstructive uropathy, MIKALYA. Patient preferred conservative management. Continue IV fluids, Flomax, pain control. Appreciate urology input. Empirically on Rocephin. Follow-up urine cultures. I personally reviewed the record. Patient is interviewed and examined at bedside. Patient's care is coordinated with Cassi Rodrigez PA-C. Please refer to the documentation above for details of patient's presentation and for discussion of other issues.
--- NOTE | 2022-03-17 10:50 | Urology Consultation ---
Date of Consultation March 17, 2022 Assessment & Plan (1) Hydronephrosis concurrent with and due to calculi of kidney and ureter: (2) Right ureteral calculus: (3) Renal colic: 51 yo M with past medical history significant for HIV, tobacco use, and nephrolithiasis admitted for renal colic, MIKAYLA, and leukocytosis secondary to an obstructing 4 mm right distal ureteral stone with hydronephrosis. - Pt afebrile, nontoxic, VSS. - Lab work reviewed - creatinine 1.5, WBC 19.51. - UA on admission not suggestive of infection, urine culture ordered. - He has been started empirically on IV Ceftriaxone. - CTAP reviewed - 4 mm distal right ureteral stone with mild to moderate hydronephrosis, just proximal to UVJ. - Patient's pain is currently controlled. - Discussed options for stone management including max expulsion therapy/trial of passage vs surgical interventions. - He is in favor of trial of passage. - No acute intervention planned today. Okay to have diet today, make NPO again at midnight for reassessment in AM. - Continue IV fluids, supportive care, Flomax, prn analgesics and antiemetics, and management per primary team. - Strain all urine. - Will monitor overnight, if he remains stable and pain is controlled then reasonable to discharge to home with outpatient follow-up. - Patient is agreeable to the plan, all questions answered. Please consult our service urgently if patient develops fever >101F, intractable pain or nausea, as this will necessitate urgent surgical intervention. Thank you for the consultation and we will continue to monitor closely with primary service. History of Present Illness Reason for Consultation: Ureteral Stone, Obstructive Uropathy Requesting Physician: Dr. Solis Attending Physician: Dr. Solis History of Present Illness 51 yo M with past medical history significant for HIV, tobacco use, and nephrolithiasis admitted for renal colic, MIKAYLA, and leukocytosis secondary to an obstructing 4 mm right distal ureteral stone with hydronephrosis. Patient presented to [facility] ED on 03/17/22 with complaint of worsening right flank pain with associated nausea and vomiting. Pain initially started about 4 days ago, then seemed to improve until yesterday when pain became significant again prompting him to come to the emergency department. He was afebrile on arrival. Lab work independently reviewed. Creatinine 1.62, WBC 18.96, Hgb 17.9. Urinalysis notable for 3+ blood, 1-5 WBCs, >30 RBCs. CTAP wo contrast reviewed and showed a 4 mm distal right ureteral stone just proximal to UVJ, mild to moderate hydronephrosis. ED course included: IV fluids, Tamsulosin, Tylenol, Ondansetron, Compazine, Morphine and Ketorolac. He was admitted to the hospital medicine service. Urology consulted for evaluation of right ureteral stone. Repeat lab work showed creatinine 1.50, WBC 19.51. Patient seen and examined in ER. He is awake and resting in litter. Appears comfortable, no distress. Reports right flank pain is currently improved and tolerable, rated 1-2 out of 10 at present time. He is voiding spontaneously. No dysuria or hematuria, though notes that urine appeared darker for the past few days. Notes some urinary frequency and hesitancy for the past day. No nausea or vomiting. No fever or chills. No chest pain or shortness of breath. Offers no additional complaints. He has a remote history of kidney stones. Reports spontaneously passing a stone about 20 years ago. No prior surgical interventions for stones. No family history of stones or malignancy. Allergies Allergy/AdvReac Type Severity Reaction Status Date / Time No Known Allergies Allergy Unverified 03/17/22 07:24 Home Medications Medication Instructions Recorded Confirmed Type bictegravir 50 mg-emtricitabine 1 tab PO HS 03/17/22 03/17/22 History 200 mg-tenofovir alafenam 25 mg tablet (Biktarvy) cholecalciferol (vitamin D3) 50 2,000 unit PO HS 03/17/22 03/17/22 History mcg (2,000 unit) capsule (Vitamin D3) montelukast 10 mg tablet 10 mg PO HS 03/17/22 03/17/22 History sildenafil 50 mg tablet 50 mg PO DAILY PRN 03/17/22 03/17/22 History valacyclovir 500 mg tablet 500 mg PO UD 03/17/22 03/17/22 History Patient History Medical History History of HIV infection History of kidney stones Surgical History History of cataract extraction History of rhinoplasty Family History Mother Hx of liver transplant Grandmother Cancer bone cancer Social History Smoking Status: Current every day smoker Tobacco Type: Cigars Years Smoked: 20; Cigarettes Per Day: 6; Hx Alcohol Use: No Hx Substance Use: No Preferred Language: American Communication Ability: Effective marital status: Single Current Living Situation: Family Current Living Situation Comment: lives with sister current occupational status: employed current occupation: [employer] Feels Safe at Home: Yes Review of Systems Constitutional: as per Subjective / HPI Eyes: + corrective lenses Ear, Nose, Mouth, Throat: no problem reported Respiratory: no dyspnea Cardiovascular: no chest pain Gastrointestinal: as per Subjective / HPI Genitourinary: + as per Subjective / HPI Musculoskeletal: no problem reported Integumentary: no problem reported Neurologic: no problem reported Psychiatric: no problem reported Physical Exam Constitutional: well developed and well nourished; no acute distress and not ill appearing Eyes: no scleral abnormality Neck: normal visual inspection Respiratory: normal respiratory effort and able to speak in complete sentences; no respiratory distress and no labored breathing Cardiovascular: Extremities: no pedal edema Gastrointestinal (Abdomen): Inspection/Auscultation: abdomen normal to inspection; abdomen not distended Percussion/Palpation: abdomen soft; abdomen nontender and no guarding Musculoskeletal: Head/Neck/Chest: normocephalic and head atraumatic Skin: no visible skin rashes to exposed skin Neurologic: moves all extremities and awake Psychiatric: Orientation: alert and oriented x 3 Genitourinary: no CVA tenderness Results & Data ([facility]) Vital Signs (Past 12 Hours) Vital Signs Temp Pulse Pulse Resp BP BP Pulse Ox 03/17/22 09:50 63 13 91 03/17/22 09:40 65 13 91 03/17/22 09:30 64 14 116/68 91 03/17/22 09:20 69 13 91 03/17/22 09:10 63 13 92 03/17/22 09:00 64 16 108/67 91 03/17/22 08:50 58 L 15 95 03/17/22 08:40 87 10 L 92 03/17/22 08:30 79 19 128/73 90 03/17/22 08:20 77 15 88 L 03/17/22 08:10 76 17 90 03/17/22 08:00 69 17 113/65 91 03/17/22 07:50 66 12 92 03/17/22 07:40 49 L 13 92 03/17/22 07:30 53 L 19 91 03/17/22 07:20 51 L 19 92 03/17/22 07:10 49 L 17 93 03/17/22 07:00 59 L 15 147/89 H 95 03/17/22 06:50 55 L 17 92 03/17/22 06:40 51 L 9 L 92 03/17/22 06:39 56 L 16 150/84 H 96 03/17/22 06:30 52 L 16 150/84 H 92 03/17/22 06:20 58 L 18 91 03/17/22 06:10 58 L 18 90 03/17/22 06:00 49 L 15 161/95 H 97 03/17/22 05:59 76 20 168/93 H 98 03/17/22 05:50 65 18 90 03/17/22 05:40 58 L 17 03/17/22 05:30 48 L 22 168/93 H 03/17/22 05:20 50 L 17 96 03/17/22 05:10 46 L 18 96 03/17/22 05:00 48 L 16 155/80 H 95 03/17/22 04:50 54 L 17 94 03/17/22 04:40 52 L 18 95 03/17/22 04:30 54 L 14 152/78 H 95 03/17/22 04:20 57 L 20 94 03/17/22 04:10 60 19 93 03/17/22 04:04 63 23 139/74 98 03/17/22 04:03 67 15 03/17/22 03:50 77 23 92 03/17/22 03:48 70 30 H 93 03/17/22 03:43 62 18 167/88 H 99 03/17/22 03:00 36.4 C L 52 L 28 H 160/96 H 100 PG Care Time/CCT Total # of Minutes Spent Total Time Spent with Patient: Total time spent is greater than 50% in coordination of care (as documented) at patient's floor/unit and/or counseling patient: Coding Level of Care Code 08909 Inpt Consult Level 3 Diagnoses Hydronephrosis concurrent with and due to calculi of kidney and ureter N13.2 Right ureteral calculus N20.1 Renal colic N23
[2022-03-17] MEDS ORDERED: cefTRIAXone SODIUM 1,000 MG in DEXTROSE 5% 50 ML IV SCH (11:18)
[2022-03-17] MEDS ORDERED: POLYETHYLENE (MIRALAX) 17 GM PACK PO PRN (11:18)
[2022-03-17] MEDS ORDERED: PHENAZOPYRIDINE HCL 100 MG TAB PO PRN (11:18)
[2022-03-17] MEDS ORDERED: ACETAMINOPHEN 325 MG TAB PO PRN (11:18)
[2022-03-17] MEDS ORDERED: ONDANSETRON INJ 2 MG/ML 2 ML VIAL IV PRN (11:18)
[2022-03-17] MEDS ORDERED: oxyCODONE/ACETAMINOPHEN 5mg/325mg TAB PO PRN (11:18)
--- NOTE | 2022-03-17 12:13 | Electrocardiogram Report ---
Test Reason : Blood Pressure : / mmHG Vent. Rate : 059 BPM Atrial Rate : 059 BPM P-R Int : 146 ms QRS Dur : 106 ms QT Int : 424 ms P-R-T Axes : 070 001 044 degrees QTc Int : 419 ms Sinus bradycardia Incomplete right bundle branch block Borderline ECG No previous ECGs available Confirmed by Bert Dawson ([id number]) on 03/17/2022 12:13:17 PM Referred By: REFERRED SELF Confirmed By:Ghulam Dawson
[2022-03-17] MEDS: cefTRIAXone SODIUM 2,000 MG in DEXTROSE 5% 50 ML IV SCH (12:24)
[2022-03-17] MEDS: MoRPHine SULFATE 2 MG/ML CARP IV PRN (17:54)
[2022-03-17] MEDS: CHOLECALCIFEROL 1,000 UNITS 25 MCG TAB PO SCH (19:56)
[2022-03-17] MEDS: MONTELUKAST SODIUM 10 MG TABLET PO SCH (19:56)
[2022-03-18] MEDS: SODIUM CHLORIDE 0.9% 1000ML 1,000 ML IV SCH ×3 (00:23→21:57)
[2022-03-18] MEDS: MoRPHine SULFATE 2 MG/ML CARP IV PRN ×3 (00:23→06:24)
[2022-03-18 06:17] LABS: Basophils # (auto) 0.02 K/uL (0-0.2); Basophils % (auto) 0.1 %; Eosinophils # (auto) 0.06 K/uL (0-0.5); Eosinophils % (auto) 0.4 %; Hematocrit (blood only) 45.2 % (42-52); Hemoglobin 15.7 g/dL (14.0-18.0); Immature Granulocytes # (auto) 0.03 K/uL (0.00-0.02); Immature Granulocytes % (auto) 0.2 %; Lymphocytes # (auto) 1.65 K/uL (1.2-3.4); Lymphocytes % (auto) 9.7 %; Mean Corpuscular Hemoglobin 35.4 pg (25-34); Mean Corpuscular Hgb Conc 34.7 g/dL (32-36); Mean Corpuscular Volume 101.8 fL (80-100); Mean Platelet Volume 10.2 fL (7.4-10.4); Monocytes % (auto) 9.4 %; Neutrophils # (auto) 13.69 K/uL (1.4-6.5); Neutrophils % (auto) 80.2 %; Platelet Count 175 K/uL (130-400); RDW Coefficient of Variation 12.3 % (11.5-14.5); RDW Standard Deviation 46.1 fL (36.4-46.3); Red Blood Count 4.44 M/uL (4.7-6.1); White Blood Count 17.05 K/uL (4.8-10.8)
[2022-03-18 06:42] LABS: Calcium 8.2 mg/dl (8.5-10.1); Creatinine Clr Calc Pharmacy 46.4 ml/min; Est GFR (African American) 45.6 ml/min; Est GFR (Non-African American) 39.4 ml/min; Magnesium 1.6 mg/dl (1.7-2.4); Potassium 3.8 mmol/L (3.5-5.1)
[2022-03-18] MEDS ORDERED: MAGNESIUM SULFATE / D5W 1 GM/100 ML BAG IV ONE (08:30)
[2022-03-18] MEDS ORDERED: MoRPHine SULFATE 2 MG/ML CARP IV STA (08:38)
--- NOTE | 2022-03-18 08:58 | Urology Progress Note ---
Date of Service March 18, 2022 Assessment & Plan (1) Right ureteral calculus: Plan: Maintain n.p.o. status Plan for or this morning for right ureteral stent placement Risks, benefits, expectations were discussed Has been receiving ceftriaxone which should be adequate for coverage Admission and Anticipated Discharge Date Admission Date: March 17, 2022 Subjective Admitted yesterday through the emergency room with a right distal ureteral calculus Unfortunately he has experienced significant pain overnight and further rise in creatinine Creatinine currently 1.9 He is afebrile and nontoxic but quite uncomfortable in appearance He and I discussed possible intervention today and he is very much in agreement We will plan to move forward with cystoscopy and right ureteral stent placement Physical Exam Constitutional: well developed and well nourished Neck: neck nontender Respiratory: normal respiratory effort; no respiratory distress and does not use accessory muscles Cardiovascular: Rate/Rhythm: regular rate Vessels: radial pulses present Extremities: no edema Gastrointestinal (Abdomen): Inspection/Auscultation: abdomen normal to inspection Percussion/Palpation: abdomen soft; abdomen nontender and no guarding Musculoskeletal: Head/Neck/Chest: normocephalic and head atraumatic Extremities: extremities normal to inspection Skin: no rashes and no lesions Trauma: no evidence of skin trauma Neurologic: awake; not obtunded Speech / Cognition: normal speech Motor/Sensory: no tremor Psychiatric: Orientation: alert and oriented x 3 Genitourinary: no CVA tenderness Lymphatic: no lymphadenopathy Results & Data ([facility]) Vital Signs (Past 12 Hours) Vital Signs Temp Pulse Pulse Resp BP Pulse Ox 03/18/22 07:48 36.8 C 81 18 151/80 H 90 03/18/22 07:10 92 H 03/18/22 03:15 37.4 C 87 16 138/75 91 03/18/22 00:06 84 03/17/22 22:33 36.9 C 94 H 18 110/61 91 PG Care Time/CCT Total # of Minutes Spent Total Time Spent with Patient: Total time spent is greater than 50% in coordination of care (as documented) at patient's floor/unit and/or counseling patient: Coding Level of Care Code 76122 Subseq Hosp Care Lvl 2 Diagnoses Right ureteral calculus N20.1
[2022-03-18] MEDS ORDERED: PROPOFOL IV EMULSION 10 MG/ML 20 ML VIAL IV ONE (11:49)
[2022-03-18] MEDS ORDERED: ONDANSETRON INJ 2 MG/ML 2 ML VIAL ONE (11:49)
[2022-03-18] MEDS ORDERED: MIDAZOLAM HCL 1 MG/ML 2ML VIAL ONE (11:49)
[2022-03-18] MEDS ORDERED: fentaNYL citrate 100 MCG/2 ML VIAL ONE (11:49)
[2022-03-18] MEDS ORDERED: LIDOCAINE 2% 2 ML VIAL/AMP(20MG/ML) INFIL ONE (11:49)
[2022-03-18] MEDS ORDERED: DEXAMETHASONE SOD INJ 4 MG/ML VIAL ONE (11:49)
[2022-03-18] MEDS ORDERED: ONDANSETRON INJ 2 MG/ML 2 ML VIAL IV PRN (12:03)
[2022-03-18] MEDS ORDERED: HYDROmorphone INJ 2 MG/ML SYR/VIAL IV PRN (12:03)
[2022-03-18] MEDS ORDERED: ePHEDrine sulfate 50 MG/ML AMP IV PRN (12:03)
[2022-03-18] MEDS ORDERED: fentaNYL citrate 100 MCG/2 ML VIAL IV PRN (12:03)
[2022-03-18] MEDS ORDERED: ATROPINE SULFATE 0.1 MG/ML 10ML SYR IV PRN (12:03)
--- NOTE | 2022-03-18 12:03 | Anesthesiology Consultation ---
Date of Service March 18, 2022 Assessment & Plan ASA ASA3 Proposed Anesthesia Anesthesia Type: General Risk / Benefits Reviewed With: PT / POA / Parent / Guardian, Accepts Plan and Informed Consent Obtained History Surgery Operation Date: 03/18/22 10:00 Proposed Procedures p Ureteral Stent Insertion/Removal - Kamron Travis MD Height/Weight Height: 5 ft 10 in Weight: 80.3 kg Allergies Allergy/AdvReac Type Severity Reaction Status Date / Time No Known Allergies Allergy Unverified 03/17/22 07:24 Medications Home Medications Medication Instructions Recorded Confirmed Last Taken bictegravir 50 mg-emtricitabine 1 tab PO HS 03/17/22 03/17/22 03/16/22 200 mg-tenofovir alafenam 25 mg tablet (Biktarvy) cholecalciferol (vitamin D3) 50 2,000 unit PO HS 03/17/22 03/17/22 03/16/22 mcg (2,000 unit) capsule (Vitamin D3) montelukast 10 mg tablet 10 mg PO HS 03/17/22 03/17/22 03/16/22 sildenafil 50 mg tablet 50 mg PO DAILY PRN 03/17/22 03/17/22 03/16/22 valacyclovir 500 mg tablet 500 mg PO UD 03/17/22 03/17/22 Unknown Active Medications Generic Name Dose Route Start Last Admin Trade Name Freq PRN Reason Stop Dose Admin Sodium Chloride 1,000 mls @ 125 mls/hr 03/17/22 07:45 03/18/22 11:40 Nss 1000ml IV 04/16/22 07:44 0 mls/hr .Q8H ADAM Infusion Ceftriaxone Sodium 2,000 mg/ 70 mls @ 140 mls/hr 03/17/22 11:45 03/17/22 12: 54 Dextrose IV 03/27/22 11:44 Infused Q24H ADAM Infusion Protocol Miscellaneous 1 ea 03/17/22 11:30 03/18/22 07:19 Biktarvy-Order Awaiting Action N/A 04/16/22 11:29 Not Given QS ADAM Montelukast Sodium 10 mg 03/17/22 21:00 03/17/22 19:56 Montelukast Sodium 10 Mg Tablet PO 04/16/22 20:59 10 mg HS ADAM Administration Morphine Sulfate 2 mg 03/17/22 11:18 03/18/22 06:24 Morphine Sulfate 2 Mg/Ml Carp IV 03/31/22 11:17 2 mg Q3H PRN Administration Pain Ondansetron HCl 4 mg 03/17/22 11:18 03/18/22 05:37 Ondansetron Inj 2 Mg/Ml 2 Ml Vial IV 04/16/22 11:17 4 mg Q6H PRN Administration Nausea Oxycodone/Acetaminophen 1 tab 03/17/22 11:18 03/17/22 19:55 Oxycodone/Acetaminophen 5mg/325mg Tab PO 03/31/22 11:17 1 tab Q4H PRN Administration Pain Vitamin D 2,000 units 03/17/22 21:00 03/17/22 19:56 Cholecalciferol 1,000 Units 25 Mcg Tab PO 04/16/22 20:59 2,000 units HS ADAM Administration NPO Date Last Intake of Fluids: 03/17/22 Time Last Intake of Fluids: 23:59 Date Last Intake of Solids: 03/17/22 Time Last Intake of Solids: 18:00 Past Medical History Medical History History of HIV infection History of kidney stones Exercise / Class Metabolic Activity II 4-5 Yardwork/Stairs/Walk up hill Past Family History Family History Mother Hx of liver transplant Grandmother Cancer bone cancer Past Surgical History Surgical History History of cataract extraction History of rhinoplasty Past Anesthesia History No Hx of Anesthesia Complications and No Family Hx of Anesthesia Complications History of PONV No Hx of PONV and No Hx of Motion Sickness Social History Smoking Status: Current every day smoker tobacco type: cigars Smoking cigarettes per day: 6 Do You Dip or Chew Tobacco: No Hx Alcohol Use: No Hx Substance Use: No substance use type: does not use Review of Systems denies fever/cough/ colds/ chest pain/ SOB/ KASSIDY denies KASSIDY Physical Exam Vital Signs Last Vital Signs Temp 36.9 C 03/18/22 11:43 Pulse 83 03/18/22 11:43 Resp 20 03/18/22 11:43 BP 142/73 H 03/18/22 11:43 Pulse Ox 90 03/18/22 11:43 ENMT Mouth: no TMJ abnormality and no dentition abnormality Thyromental Distance: > or= 3.5 Finger Breadths Mallampati Class: II Neck neck extension not limited Respiratory normal respiratory effort; no respiratory distress Auscultation: lungs clear to auscultation bilaterally Cardiovascular Rate/Rhythm: regular rate and regular rhythm Neurologic moves all extremities Psychiatric Orientation: alert and oriented x 3 Testing Laboratory Results 03/18/22 05:51 03/18/22 05:51 Urine Color Yellow 03/17/22 03:15 Urine Appearance Clear (Clear) 03/17/22 03:15 Urine pH 5.0 (4.5-7.5) 03/17/22 03:15 Ur Specific [place] 1.023 (1.000-1.030) 03/17/22 03:15 Urine Protein Trace (Negative) H 03/17/22 03:15 Urine Glucose (UA) Negative (Negative) 03/17/22 03:15 Urine Ketones 1+ (Negative) H 03/17/22 03:15 Urine Nitrite Negative (Negative) 03/17/22 03:15 Ur Leukocyte Esterase Negative (Negative) 03/17/22 03:15 Urine WBC (Auto) 1-5 /hpf (0-5) 03/17/22 03:15 Urine RBC (Auto) >30 /hpf (0-4) H 03/17/22 03:15 U Hyaline Cast (Auto) 1-5 /lpf (0-5) 03/17/22 03:15 U Epithel Cells (Auto) 5-10 /lpf (0-5) H 03/17/22 03:15 Urine Bacteria (Auto) Negative (Negative) 03/17/22 03:15
[2022-03-18] MEDS: cefTRIAXone SODIUM 2,000 MG in DEXTROSE 5% 50 ML IV SCH (12:11)
--- NOTE | 2022-03-18 12:41 | Operative Report ---
PG Post Operative Report Pre & Post Diagnosis Pre: Right ureteral stone Post: Right ureteral stone Operation Date: 03/18/22 10:00 <No data on this case meets the specified criteria> I identified the patient and participated in the time-out.: Yes Procedure Procedure: cystoscopy, right ureteral stent placement Operation Date: 03/18/22 10:00 <No data on this case meets the specified criteria> Surgeon Bert Travis MD Universal Grinder Operator none Estimated Blood Loss 0 Findings Consistent with Post-Op Diagnosis As per dictation Specimens None Description of Procedure The patient was identified in the preoperative holding area, appropriate informed consents were reviewed and completed and the patient was transferred to the operative suite. Upon arrival, appropriate antibiotics and anesthesia were administered and the patient was placed in dorsal lithotomy position and prepped and draped in sterile fashion. To begin the case22 Icelandic cystoscope with 30 degree lens. Inspection revealed a healthy-appearing urethra moderate size prostate and healthy bladder. There were no stones visualized within the bladder. There were also no mucosal abnormalities. I turned attention to the right UO and cannulated with a sensor wire. There was a discharge of murky old urine immediately after the wire bypassed the stone. The wire advanced the kidney without difficulty and I placed a 6 Icelandic by 26 cm double-J stent seeing a good curl in the kidney as well as the bladder. There were no complications. He tolerated the procedure well. I attest to the content of the Intraoperative Record and any orders documented therein. Any exceptions are noted below.
--- NOTE | 2022-03-18 13:02 | Fluoroscopy Report ---
FL KUB CLINICAL HISTORY: RT CYSTO/STENT COMPARISON STUDY: CT of the abdomen and pelvis March 17, 2022. FLUOROSCOPY TIME: 6.8 seconds. FLUOROSCOPIC IMAGES: 1 FINDINGS: Fluoroscopy was provided during cystoscopy and right ureteral stent placement. Proximal asp ect of stent projects over the right renal pelvis. IMPRESSION: Fluoroscopy provided during cystoscopy and right ureteral stent placement. ACT 112: Negative or not required by law. Electronically signed by: Frandy Kong M.D. 03/18/2022 1:00 PM
--- NOTE | 2022-03-18 13:22 | Anesthesiology Progress Note ---
Date of Service March 18, 2022 Anesthesia Post Procedure Vital Signs Vital Signs: Temp Pulse Pulse Pulse Resp BP Pulse Ox 03/18/22 13:15 36.9 C 99 H 13 127/70 91 03/18/22 13:05 101 H 16 125/69 92 03/18/22 12:55 99 H 14 126/72 96 03/18/22 12:45 36.7 C 114 H 13 126/75 93 03/18/22 11:43 36.9 C 83 20 142/73 H 90 03/18/22 11:33 37.3 C 76 18 143/62 H 90 03/18/22 07:48 36.8 C 81 18 151/80 H 90 03/18/22 07:10 92 H 03/18/22 06:15 84 03/18/22 03:15 37.4 C 87 16 138/75 91 03/18/22 00:06 84 03/17/22 22:33 36.9 C 94 H 18 110/61 91 03/17/22 19:45 37.5 C 75 18 124/66 93 03/17/22 15:03 36.9 C 67 18 118/68 93 03/17/22 14:20 63 Pain Intensity Right Back: Pain Intensity: 2 Transfer of Care Handoff Completed per policy Notes Mental Status: alert / awake / arousable and participated in evaluation Patient Amnestic to Procedure: Yes Nausea / Vomiting: adequately controlled Pain: adequately controlled Airway Patency, RR, SpO2: stable & adequate BP & HR: stable & adequate Hydration State: stable & adequate Anesthetic Complications: no major complications apparent and Pt Satisfied with anesthetic care
--- NOTE | 2022-03-18 13:45 | Hospitalist Progress Note ---
Date of Service March 18, 2022 Assessment & Plan (1) Right ureteral calculus: (2) Hydronephrosis concurrent with and due to calculi of kidney and ureter: (3) Renal colic: (4) MIKAYLA (acute kidney injury): Plan: This is a 51-year-old male who has a significant past medical history of HIV who presents to ED secondary to flank pain x4 days. Mild to moderate right-sided hydroureteronephrosis secondary to an obstructing 4 mm calculus of the distal right ureter just proximal to the ureterovesicular junction. Right ureteral calculus Obstructive Uropathy MIKAYLA secondary to above Renal colic Leukocytosis --CT ABD:Mild to moderate right-sided hydroureteronephrosis secondary to an obstructing 4 mm calculus of the distal right ureter just proximal to the ureterovesicular junction. No bowel obstruction or bowel wall thickening. Normal appendix. --S/P Right Ureteral Stent Placement on 03/18/22 by Continue IV fluids On Rocephin empirically Follow-up cultures Pain control Continue Flomax, Pyridium as needed Appreciate urology help Avoid nephrotoxic agents as able Monitor renal function H/O HIV in remission for ~ 25 yrs on biktarvy Tobacco abuse smokes 2-10 cigars daily encourage smoking cessation DVT px SCD/TEDS, ambulate Code Status FULL CODE Admission and Anticipated Discharge Date Admission Date: March 17, 2022 Subjective Patient is seen and examined at bedside Reports persistent Right flank pain this morning Planned for R ureteral stent placement Denies chest pain, dyspnea, dizziness, nausea Offers no other complaints Review of Systems Review of Systems: All systems reviewed & are unremarkable except as noted in Subjective Physical Exam Physical Exam: Physical Exam: Vitals signs as noted above General Appearance:Moderately built and nourished, no apparent distress Head: normocephalic, Atraumatic Eyes: normal inspection, EOMI Neck: supple, Trachea midline Respiratory/Chest: Normal breath sounds, CTA, No accessory muscle use Cardiovascular: S1, S2, No murmur Abdomen/GI:Soft, R flank tender, Bowel sounds present Extremities/Musculoskeletal:normal inspection, no edema Neurologic/Psych:AAOX3, grossly no focal neurological deficits Skin: normal color, warm Results & Data [facility] Vital Signs (Past 12 Hours) Vital Signs Temp Pulse Pulse Pulse Resp BP Pulse Ox 03/18/22 13:25 89 19 111/64 93 03/18/22 13:15 36.9 C 99 H 13 127/70 91 03/18/22 13:05 101 H 16 125/69 92 03/18/22 12:55 99 H 14 126/72 96 03/18/22 12:45 36.7 C 114 H 13 126/75 93 03/18/22 11:43 36.9 C 83 20 142/73 H 90 03/18/22 11:33 37.3 C 76 18 143/62 H 90 03/18/22 07:48 36.8 C 81 18 151/80 H 90 03/18/22 07:10 92 H 03/18/22 06:15 84 03/18/22 03:15 37.4 C 87 16 138/75 91 Laboratory Results Short CBC 03/18/22 Range/Units 05:51 WBC 17.05 H (4.8-10.8) K/uL Hgb 15.7 (14.0-18.0) g/dL Hct 45.2 (42-52) % Plt Count 175 (130-400) K/uL BMP 03/18/22 05:51 Sodium 138 Potassium 3.8 Chloride 108 H Carbon Dioxide 25 BUN 19 Creatinine 1.90 H D Glucose 100 H Calcium 8.2 L
[2022-03-18] MEDS: TAMSULOSIN HCL 0.4 MG CAP PO SCH (13:51)
--- NOTE | 2022-03-18 15:22 | XRay Report ---
KUB HISTORY: Follow-up right Ureteral Stone COMPARISON: Abdomen and pelvis CT 03/17/2022. FINDINGS: The bowel gas pattern is unremarkable. There are no dilated loops of small bowel to suggest an obstruction. There is a 3 mm stone within the distal right ureter, unchanged. No renal calculi i dentified. Borderline dilated gas-filled loops of small bowel favor a mild ileus. No pneumoperitoneum or pneumatosis. IMPRESSION: No change in the 3 mm stone within the distal right ureter. ACT 112: Negative or not required by law. Electronically signed by: Jono Padgett M.D. 03/18/2022 3:21 PM
[2022-03-18] MEDS: CHOLECALCIFEROL 1,000 UNITS 25 MCG TAB PO SCH (22:00)
[2022-03-18] MEDS: MONTELUKAST SODIUM 10 MG TABLET PO SCH (22:00)
[2022-03-19] MEDS: SODIUM CHLORIDE 0.9% 1000ML 1,000 ML IV SCH ×2 (00:49→06:07)
[2022-03-19 07:21] LABS: Basophils # (auto) 0.01 K/uL (0-0.2); Basophils % (auto) 0.1 %; Eosinophils # (auto) 0.01 K/uL (0-0.5); Eosinophils % (auto) 0.1 %; Hematocrit (blood only) 42.9 % (42-52); Hemoglobin 14.9 g/dL (14.0-18.0); Immature Granulocytes # (auto) 0.03 K/uL (0.00-0.02); Immature Granulocytes % (auto) 0.2 %; Lymphocytes # (auto) 1.62 K/uL (1.2-3.4); Lymphocytes % (auto) 9.1 %; Mean Corpuscular Hemoglobin 35.1 pg (25-34); Mean Corpuscular Hgb Conc 34.7 g/dL (32-36); Mean Corpuscular Volume 100.9 fL (80-100); Mean Platelet Volume 10.3 fL (7.4-10.4); Monocytes # (auto) 1.55 K/uL (0.11-0.59); Monocytes % (auto) 8.7 %; Neutrophils # (auto) 14.67 K/uL (1.4-6.5); Neutrophils % (auto) 81.8 %; Platelet Count 187 K/uL (130-400); RDW Coefficient of Variation 12.2 % (11.5-14.5); RDW Standard Deviation 44.9 fL (36.4-46.3); Red Blood Count 4.25 M/uL (4.7-6.1); White Blood Count 17.89 K/uL (4.8-10.8)
[2022-03-19] MEDS: TAMSULOSIN HCL 0.4 MG CAP PO SCH (07:41)
[2022-03-19 07:46] LABS: BUN Creatinine Ratio 14.8 (10-20); Calcium 8.5 mg/dl (8.5-10.1); Creatinine Clr Calc Pharmacy 76.7 ml/min; Est GFR (African American) 83.7 ml/min; Est GFR (Non-African American) 72.3 ml/min; Potassium 4.2 mmol/L (3.5-5.1)
--- NOTE | 2022-03-19 09:06 | Urology Progress Note ---
Date of Service March 19, 2022 Assessment & Plan (1) Right ureteral calculus: Plan: s/p right ureteral stent small distal right ureteral calc should be ok for d/c home today we will arrange outpt f/u - stone was visible on KUB preoperatively - might be an ok candidate for ESWL Admission and Anticipated Discharge Date Admission Date: March 17, 2022 Subjective much better this AM no pain Cr dropped to 1.15 WBC still elevated no fevers anxious to go home Physical Exam Constitutional: well developed and well nourished Respiratory: no respiratory distress Cardiovascular: Extremities: no pedal edema Gastrointestinal (Abdomen): Inspection/Auscultation: abdomen normal to inspection Results & Data ([facility]) Vital Signs (Past 12 Hours) Vital Signs Temp Pulse Pulse Resp BP Pulse Ox 03/19/22 06:38 36.5 C 80 20 117/64 96 03/19/22 03:42 36.6 C 83 18 124/76 94 03/18/22 23:00 88 03/18/22 22:17 36.6 C 87 20 127/72 93 PG Care Time/CCT Total # of Minutes Spent Total Time Spent with Patient: Total time spent is greater than 50% in coordination of care (as documented) at patient's floor/unit and/or counseling patient: Coding Level of Care Code 33749 Subseq Hosp Care Lvl 2 Diagnoses Right ureteral calculus N20.1
[2022-03-19] MEDS: cefTRIAXone SODIUM 2,000 MG in DEXTROSE 5% 50 ML IV SCH (11:09)
--- NOTE | 2022-03-19 12:14 | Hospitalist Progress Note ---
Date of Service March 19, 2022 Assessment & Plan (1) Right ureteral calculus: (2) Hydronephrosis concurrent with and due to calculi of kidney and ureter: (3) Renal colic: (4) MIKAYLA (acute kidney injury): Plan: This is a 51-year-old male who has a significant past medical history of HIV who presents to ED secondary to flank pain x4 days. Mild to moderate right-sided hydroureteronephrosis secondary to an obstructing 4 mm calculus of the distal right ureter just proximal to the ureterovesicular junction. Right ureteral calculus Obstructive Uropathy MIKAYLA secondary to above Renal colic Leukocytosis --CT ABD:Mild to moderate right-sided hydroureteronephrosis secondary to an obstructing 4 mm calculus of the distal right ureter just proximal to the ureterovesicular junction. No bowel obstruction or bowel wall thickening. Normal appendix. --S/P Right Ureteral Stent Placement on 03/18/22 by Received IV fluids Received On Rocephin for 3 days Urine culture: Negative Pain is controled Continue Flomax, Pyridium as needed Appreciate urology help Avoid nephrotoxic agents as able Monitor renal function MIKAYLA resolved Needs follow up with Urology upon discharge H/O HIV in remission for ~ 25 yrs on biktarvy Tobacco abuse smokes 2-10 cigars daily encourage smoking cessation DVT px SCD/TEDS, ambulate Code Status FULL CODE Admission and Anticipated Discharge Date Admission Date: March 17, 2022 Subjective Patient is seen and examined at bedside Doing well today Renal function normalized No flank pain today No complaints Denies chest pain, dyspnea, dizziness, nausea Plan to discharge home today Review of Systems Review of Systems: All systems reviewed & are unremarkable except as noted in Subjective Physical Exam Physical Exam: Physical Exam: Vitals signs as noted above General Appearance:Moderately built and nourished, no apparent distress Head: normocephalic, Atraumatic Eyes: normal inspection, EOMI Neck: supple, Trachea midline Respiratory/Chest: Normal breath sounds, CTA, No accessory muscle use Cardiovascular: S1, S2, No murmur Abdomen/GI:Soft, R flank tender, Bowel sounds present Extremities/Musculoskeletal:normal inspection, no edema Neurologic/Psych:AAOX3, grossly no focal neurological deficits Skin: normal color, warm Results & Data Results & Data ([facility]) Vital Signs (Past 12 Hours) Vital Signs Temp Pulse Resp BP Pulse Ox 03/19/22 11:16 36.9 C 72 18 139/77 94 03/19/22 06:38 36.5 C 80 20 117/64 96 03/19/22 03:42 36.6 C 83 18 124/76 94 Laboratory Results Short CBC 03/19/22 Range/Units 06:43 WBC 17.89 H (4.8-10.8) K/uL Hgb 14.9 (14.0-18.0) g/dL Hct 42.9 (42-52) % Plt Count 187 (130-400) K/uL BMP 03/19/22 06:43 Sodium 141 Potassium 4.2 Chloride 110 H Carbon Dioxide 26 BUN 17 Creatinine 1.15 D Glucose 106 H Calcium 8.5
--- NOTE | 2022-03-19 12:20 | Discharge Summary ---
Date of Service March 19, 2022 Admission HPI Per Admitting Provider This is a 51-year-old male who has a significant past medical history of HIV who presents to ED secondary to flank pain x4 days. He initially noted low back pain approximately 4 days ago. It was also associated with nausea. Pain radiated to right inguinal region. He also complained of suprapubic discomfort. 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 Symptoms progressed over 4 days and last evening he developed sharp, shooting pain and low back around the front and to right groin. He also was nauseated and had emesis and diaphoresis. He does have history of kidney stone in the past that had passed spontaneously. He opted to present to ED for further evaluation. He denies any fever, chills, sweats, lightheadedness, dizziness, chest pain, shortness of breath, cough, hematemesis, dysuria, increased urgency or frequency with urination, hematuria, melena or hematochezia. His appetite has otherwise been diminished. In ED patient remained hemodynamically stable. CT of abdomen pelvis did reveal a 4 mm distal right ureteral stone proximal to the UVJ. He received IV morphine in ED and pain has subsided significantly. Upon arrival he describes pain as 8 out of 10, worse with movement and improved with rest. Currently pain is minimal and a 1 out of 10. He was afebrile but did have a leukocytosis 19.51k. His creatinine was also elevated to 1.50. His creatinine baseline is unknown. Admission Exam Per Admitting Provider Physical Exam Physical Exam: Constitutional: WD/WN, vitals as above, NAD, sitting up in bed, pleasant, conversing easily Head: Normocephalic, Atraumatic Eyes: PERRL, conjunctivae normal, anicteric sclerae ENMT: external ear and nose normal, oropharynx normal Neck: trachea midline, no thyromegaly normal visual inspection Respiratory: normal respiratory effort, lungs clear to auscultation, no wheeze, rales, rhonchi. Normal insp/exp effort, no accessory muscle use Cardiovascular: RRR, no murmur, no edema Vessels: no JVD or carotid bruit Chest: normal inspection of chest Abdomen: normal bowel sounds, soft, nontender, no hepatosplenomegaly Musculoskeletal: no cyanosis or clubbing, extremities motor strength 5/5 Skin: no rashes, warm and dry normal turgor Neurologic: PERRL, EOMI, accommodation nl, no face palsy, +stutter which is baseline for pt CN's II-XI intact bilaterally and moves all extremities Psychiatric: A+Ox3, euthymic affect Lymphatic: no cervical or axillary lymphadenopathy : deferred Principal Diagnosis Right ureteral Stone Obstructive Uropathy Acute Kidney Injury Discharge Data Allergies Allergy/AdvReac Type Severity Reaction Status Date / Time No Known Allergies Allergy Unverified 03/17/22 07:24 Consultations 03/17/22 09:09 Consult Urology Routine Procedures Performed Operation Date: 03/18/22 10:00 Actual Procedures p Cystoscopy and Right Ureteral Stent Insertion(Right) - Kamron Travis MD Ordered Studies 03/17/22 03:28 CT abd pelvis wo con Urgent 03/18/22 FL KUB Routine Hospital Course (1) Right ureteral calculus: (2) Hydronephrosis concurrent with and due to calculi of kidney and ureter: (3) Renal colic: (4) MIKAYLA (acute kidney injury): This is a 51-year-old male who has a significant past medical history of HIV who presents to ED secondary to flank pain x4 days. Mild to moderate right-sided hydroureteronephrosis secondary to an obstructing 4 mm calculus of the distal right ureter just proximal to the ureterovesicular junction. Right ureteral calculus Obstructive Uropathy MIKAYLA secondary to above Renal colic Leukocytosis --CT ABD:Mild to moderate right-sided hydroureteronephrosis secondary to an obstructing 4 mm calculus of the distal right ureter just proximal to the ureterovesicular junction. No bowel obstruction or bowel wall thickening. Normal appendix. --S/P Right Ureteral Stent Placement on 03/18/22 by Received IV fluids Received On Rocephin for 3 days Urine culture: Negative Pain is controled Continue Flomax, Pyridium as needed Appreciate urology help Avoid nephrotoxic agents as able Monitor renal function MIKAYLA resolved Needs follow up with Urology upon discharge H/O HIV in remission for ~ 25 yrs on biktarvy Tobacco abuse smokes 2-10 cigars daily encourage smoking cessation DVT px SCD/TEDS, ambulate Code Status FULL CODE Total Time Total Time Spent Total Time Spent (In Minutes): 40 minutes Discharge Plan Discharge Items Patient Disposition: Home - Self-Care Reason For Visit: KIDNEY STONE Discharge Diagnosis: Right ureteral Stone Obstructive Uropathy Acute Kidney Injury Activity: Per Instructions section Exercise/Sports: Gradually increase as tolerated Non-emergency contact: Primary Care Provider and Urologist Call non-emergency contact if: you have any medication questions, your symptoms worsen, your pain is concerning for you and you have a fever Follow-up/Referrals: Rema Delacruz, [Primary Care Provider] - Diet: Regular Addtl Attending Provider Instructions: Follow up with your Primary Care Physician in 1 week Follow up with your Urologist in 2-3 weeks as advised for definitive stone treatment Seek immediate medical attention if your symptoms reoccur or worsen Please take all medications as instructed on discharge list below. Please call if you have any questions or problems. You can reach a [facility] hospitalist on duty at [facility] 24 hours a day by calling [phone] Pending Studies at Discharge: No Stand-Alone Forms: My [facility], Smoking Cessation Medications and DC Order Prescriptions: New tamsulosin 0.4 mg Capsule 0.4 mg PO QAM Qty: 30 RF: 0 phenazopyridine [Pyridium] 100 mg Tablet 100 mg PO TID PRN (Reason: pain) Qty: 30 RF: 0 Continued sildenafil 50 mg tablet 50 mg PO DAILY PRN (Reason: Sexual Activity) RF: 0 valacyclovir 500 mg tablet 500 mg PO UD RF: 0 montelukast 10 mg tablet 10 mg PO HS RF: 0 cholecalciferol (vitamin D3) [Vitamin D3] 50 mcg (2,000 unit) capsule 2,000 unit PO HS RF: 0 Biktarvy 50-200-25 mg tablet 1 tab PO HS RF: 0 Discharge Orders: Discharge Order (Routine); Ordered 03/19/22 Ordered By: Hipolito Solis Admission Data Admit Date/Time: 03/17/22 08:05 Attending Provider: Hipolito Solis Admit Provider: Hipolito Solis Primary Care Provider: Rema Delacruz Other Providers: Kamron Travis
== END 2022-03-19 12:35 | disposition home or self-care (01) | DRG 661 ==
LOC: ED 02:54 → INTOOBSV 08:05 → 2N 08:05